=== PATIENT | male | born 1970 | race Caucasian/White ===

== ENCOUNTER 2016-11-30 14:45 | Outpatient (CLI) | payer OTHER ==
[~2016-11-30 14:45] MED LIST: ALLP100T PO; CEPH500C PO; MULT-963 PO; TRM50T PO
== END 2016-11-30 15:33 | disposition home or self-care (01) ==
LOC: SLEEP 14:45
PROVIDERS: ATTEND Otolaryngology Otolaryngology/Facial Plastic Surgery
DX: G47.33 Obstructive sleep apnea (adult) (pediatric) (principal)

== ENCOUNTER 2018-01-31 15:37 | Outpatient (RCR) | payer BC | END 2018-02-12 | disposition home or self-care (01) | PROVIDERS: ATTEND Internal Medicine | DX: M54.41 Lumbago with sciatica, right side (principal) ==

== ENCOUNTER 2018-02-28 14:30 | Outpatient (RCR) | payer BC | END 2018-03-02 | disposition home or self-care (01) | PROVIDERS: ATTEND Internal Medicine | DX: M54.41 Lumbago with sciatica, right side (principal) ==

== ENCOUNTER 2018-04-30 16:05 | Outpatient (RCR) | payer BC | END 2018-06-30 | disposition home or self-care (01) | PROVIDERS: ATTEND Internal Medicine | DX: M54.41 Lumbago with sciatica, right side (principal) ==

== ENCOUNTER 2018-07-03 16:31 | Outpatient (RCR) | payer BC | END 2018-09-16 16:12 | disposition home or self-care (01) | PROVIDERS: ATTEND Internal Medicine | DX: M54.41 Lumbago with sciatica, right side (principal) ==

== ENCOUNTER → 2021-07-31 | Outpatient (RCR) | payer BC ==
[~2021-07-31] VITALS: Ht 177.8 cm; Wt 145.6 kg
[~2021-07-31] MED LIST changes: +ALLO100T PO; +AMLO5TAB4 PO; +CELE200C PO; +LOSA50TA63 PO; +MULT-593 PO; +OMEP20TA33 PO; +SUCR1TAB36 PO; +TEST200V21 IM; +[UNRECOGNIZED DRUG - CODE] PO
== END | disposition home or self-care (01) ==
LOC: PREOP 05:35
PROVIDERS: ATTEND Surgery
DX: Z01.818 Encounter for other preprocedural examination (principal)

== ENCOUNTER → 2021-08-03 | Outpatient (CLI) | payer BC | LOC: LABNPT 06:19 | PROVIDERS: ATTEND Surgery | DX: Z53.9 Procedure and treatment not carried out, unspecified reason (principal) ==

== ENCOUNTER 2021-08-07 07:00 | Day surgery (SDC) | payer BC ==
[~2021-08-07] VITALS: Ht 177.8 cm; Wt 145.6 kg
[2021-08-07] MEDS ORDERED: LACTATED RINGERS 1,000 ML IV STA (07:03)
[2021-08-07 07:15] VITALS: BP 162/105
[2021-08-07] MEDS ORDERED: PROPOFOL INJECTION 50 ML IV ONE ×2 (07:16→07:59)
--- NOTE | 2021-08-07 07:49 | Progress Note-Pre Operative ---
Pre-Operative Progress Note H&P Reviewed The H&P was reviewed, patient examined and no changes noted. Date Seen by Provider: Aug 07, 2021 Time Seen by Provider: 07:49 Date H&P Reviewed: Aug 07, 2021 Time H&P Reviewed: 07:49 Pre-Operative Diagnosis: screening colonoscopy RENEA GRAVES DO Aug 07, 2021 07:49
[2021-08-07 08:20] VITALS: BP 130/72
[2021-08-07 08:23] VITALS: BP 130/72
--- NOTE | 2021-08-07 08:24 | Anesthesia-General Post-Op ---
MAC Patient Condition Mental Status/LOC: Same as Preop Cardiovascular: Satisfactory Nausea/Vomiting: Absent Respiratory: Satisfactory Pain: Controlled Complications: Absent Post Op Complications Complications None Follow Up Care/Instructions Patient Instructions None needed. Anesthesiology Discharge Order Discharge Order Patient is doing well, no complaints, stable vital signs, no apparent adverse anesthesia problems. No complications reported per nursing. WISAM MOORE CRNA Aug 07, 2021 08:24
--- NOTE | 2021-08-07 08:39 | Discharge Inst-Simple/Standard ---
Discharge Inst-Standard Patient Instructions/Follow Up Plan of Care/Instructions/FU: 2 weeks Jos Activity as Tolerated: Yes Discharge Diet: Regular Diet RENEA GRAVES DO Aug 07, 2021 08:39
--- NOTE | 2021-08-07 08:40 | Progress Note-Post Operative ---
Post-Operative Progess Note Surgeon (s)/Robotics Technologist (s) Surgeon RENEA GRAVES DO Robotics Technologist: na Pre-Operative Diagnosis screening colonoscopy Post-Operative Diagnosis colon polyps, internal hemorrhoids Procedure & Operative Findings Date of Procedure 08/07/21 Procedure Performed/Findings colonoscopy c snare polypectomy x 1, hot bx polypectomy x 3 Anesthesia Type per international trade specialist Estimated Blood Loss Estimated blood loss (mL): none Specimens/Packing Specimens Removed colon polyps RENEA GRAVES DO Aug 07, 2021 08:40
[2021-08-07 08:45] VITALS: BP 131/91
--- NOTE | 2021-08-07 18:45 | OPERATIVE REPORT ---
DATE OF SERVICE: 08/07/2021 PREOPERATIVE DIAGNOSIS: Screening colonoscopy. POSTOPERATIVE DIAGNOSIS: Colon polyps. PROCEDURE: Colonoscopy with hot biopsy polypectomy x3 and snare polypectomy x1. SURGEON: Renea Arguello DO. ANESTHESIA: Per SWIMMING POOL SERVICE TECHNICIAN. ESTIMATED BLOOD LOSS: None. COMPLICATIONS: None. INDICATIONS: The patient is a 51-year-old male, needing screening colonoscopy. He understands risks and benefits and wishes to proceed. Consent was signed in the chart. DESCRIPTION OF PROCEDURE: The patient was taken to the endoscopy suite, placed in left lateral recumbent position. Timeout was performed. Digital rectal exam was performed. No palpable polyps, masses or ulcerations. Some atrial disease. Scope was inserted in the rectum, advanced all the way to cecum with minimal difficulty. Prep was adequate. Scope was then slowly retracted back. No polyps, masses or ulcerations within the cecum and the ascending colon. A polyp was present, which snare polypectomy was performed. Specimen was obtained. Scope was then continued slowly retracted back into the transverse colon where another small polyp was present, which hot biopsy polypectomy was performed. Scope was then continuously retracted back into the descending colon without any polyps, masses or ulcerations. In the sigmoid colon, there were 2 small polyps, which hot biopsy polypectomies were performed. Scope was then continuously retracted back into the rectum where it was also retroflexed, just noting internal hemorrhoids. No other abnormalities. Scope was returned to its normal position, slowly withdrawn until completely removed, noting no other pathology. The patient tolerated procedure well without any complications. He was taken to recovery room in stable condition. RECOMMENDATIONS: The patient will need repeat colonoscopy in 3 to 5 years. Any issues before that be seen at that time. Job ID: [id number] DocumentID: [id number] Dictated Date: 08/07/2021 13:19:49 Director Project Management Date: 08/07/2021 18:44:41 Dictated By: RENEA ARGUELLO DO
== END 2021-08-07 08:49 | disposition home or self-care (01) ==
LOC: ENDO 07:00
PROVIDERS: ATTEND Surgery
DX: Z12.11 Encounter for screening for malignant neoplasm of colon (principal); K63.5 Polyp of colon; E66.01 Morbid (severe) obesity due to excess calories; Z68.42 Body mass index [BMI] 45.0-49.9, adult; I10 Essential (primary) hypertension; K21.9 Gastro-esophageal reflux disease without esophagitis; Z79.899 Other long term (current) drug therapy
CPT/HCPCS: 88305

== ENCOUNTER → 2022-01-11 | Outpatient (CLI) | payer BC ==
--- NOTE | 2022-01-11 09:49 | Diagnostic Imaging Report ---
INDICATION: Elevated liver function tests. PROCEDURE: Ultrasound abdomen complete. TECHNIQUE: Multiple real-time grayscale images were obtained of the abdomen in various projections. Liver is enlarged at approximately 21 cm. The portal vein is patent and shows normal direction of flow. Liver shows diffuse increased echogenicity consistent with hepatic steatosis. The gallbladder is without stones or sludge. There is no wall thickening or biliary duct dilatation. Pancreas is obscured by bowel gas. Spleen is upper limits of normal in size 13.7 cm. Aorta is not visualized due to bowel gas. Visualized IVC is patent. Kidneys are without calculi or hydronephrosis. There is no ascites. IMPRESSION: 1. Hepatomegaly and hepatic steatosis. 2. No evidence of cholelithiasis or acute cholecystitis. Dictated by: Dictated on workstation # [id number]
== END ==
LOC: RAD 08:30
PROVIDERS: ATTEND Internal Medicine
DX: K76.0 Fatty (change of) liver, not elsewhere classified (principal)
CPT/HCPCS: 76700